=== PATIENT | male | born 1955 | race Caucasian/White ===

== ENCOUNTER 2024-11-08 11:29 | Outpatient (CLI) | payer MEDICARE ==
--- NOTE | 2024-11-09 10:52 | RADIOLOGY REPORT ---
CLINICAL INDICATION: EFFUSION, RIGHT ANKLE;PAIN IN RIGHT ANKLE AND JOIN COMPARISON: None. TECHNIQUE: Multiplanar, multisequence MRI of the right ankle was performed without intravenous contr ast. Contrast: None INTERPRETATION: Bones: There is a late subacute versus chronic fracture of the distal fibula with bony remodeling jayshree ng the tip of the fibula. No evidence of marrow replacing lesion. Patchy bone marrow edema in the d istal tibia and the lateral talus likely related to articular cartilage loss. Joints: Small ankle joint effusion. There is tibiotalar joint space narrowing and loss of the articu lar cartilage of the both sides of the joint, with osteophytes reflecting osteoarthritis. There is ta lonavicular joint space narrowing and osteophytes. Alignment: Unremarkable. Ligaments: The anterior talofibular ligament is torn. The posterior talofibular ligament is intact. T he calcaneofibular ligament is intact. The inferior tibiofibular ligaments are intact. The visualized portions of the deltoid and spring ligaments are intact. Tendons:The Achilles tendon is intact. The peroneal tendons are intact. The posterior tibialis, fle xor hallucis longus and flexor digitorum longus tendons are intact. The dorsal extensor tendons are intact. Plantar Fascia: The medial cord of the plantar fascia is thickened with T2 hyperintensity adjacent to a heel spur, reflecting plantar fasciitis. Bursae: The retroachilles bursa is not fluid distended. The retrocalcaneal bursa is not fluid diste nded. Mass/Fluid: Small ankle joint effusion. No mass or fluid in the sinus tarsi. Muscles: Intrinsic muscles of the foot are unremarkable IMPRESSION: 1. Late subacute versus chronic fracture of the distal fibula of the right ankle with osseous remodel ing. 2. Tibiotalar osteoarthritis. Ankle joint effusion. 3. ATFL tear. 4. Plantar fasciitis.
== END 2024-11-08 23:59 | disposition home or self-care (01) ==
LOC: MRI02 11:29
PROVIDERS: ATTEND Podiatrist Foot & Ankle Surgery
DX: S93.491A Sprain of other ligament of right ankle, initial encounter (principal); M25.471 Effusion, right ankle; M25.571 Pain in right ankle and joints of right foot; M19.071 Primary osteoarthritis, right ankle and foot; M21.6X1 Other acquired deformities of right foot; M25.371 Other instability, right ankle; M20.21 Hallux rigidus, right foot; M72.2 Plantar fascial fibromatosis; M19.072 Primary osteoarthritis, left ankle and foot; M20.22 Hallux rigidus, left foot; X58.XXXA Exposure to other specified factors, initial encounter; Y93.89 Activity, other specified; Y92.89 Other specified places as the place of occurrence of the external cause; Y99.8 Other external cause status
CPT/HCPCS: 73721